=== PATIENT | male | born 1995 | race Caucasian/White ===

== ENCOUNTER 2019-03-22 01:15 | Emergency (ER) | payer BC, SELFPAY ==
[2019-03-22 01:25] VITALS: BP 145/81; PULSE 77; RESP 18; TEMP 36.6; O2SAT 98
--- NOTE | 2019-03-22 01:29 | ED.WOUNDLAC ---
HPI - Wound/Laceration General Chief Complaint: Wound/Laceration Stated Complaint: LACERATION ON LIP Time Seen by Provider: 03/22/19 01:29 Source: patient and RN notes reviewed Mode of arrival: ambulatory Limitations: no limitations History of Present Illness HPI narrative: Patient was using a [employer] when it kicked back and caught him in the lower lip chip in his upper left incisor. Onset (ago): minute(s) Location: face Place: home Context: accidental and sharp object use Associated symptoms: none Related Data Allergies Allergy/AdvReac Type Severity Reaction Status Date / Time No Known Allergies Allergy Verified 03/22/19 01:32 Review of Systems Review of Systems: All systems reviewed & are unremarkable except as noted in HPI and below PMFSH Surgical History Surgical History (Updated 03/22/19 @ 02:24 by Florian Niño MD) No history of previous surgery (Acute) Social History Social History (Updated 03/22/19 @ 02:23 by Florian Niño MD) Smoking status: Current some day smoker Tobacco type: cigarettes Smokeless tobacco user: chewing tobacco Alcohol intake: current Alcohol use details: Occasional Substance use: never Exam Const: General: healthy appearing and no acute distress Nutritional Appearance: well nourished Orientation/consciousness: oriented x3 Limitations: no limitations Eyes: Conjunctivae: conjunctivae normal Pupils: PERRL EOM: EOM intact bilaterally Neck: Neck: normal visual inspection Resp: Effort & Inspection: normal respiratory effort Auscultation: clear to auscultation bilaterally Cardio: Rate: regular rate Rhythm: regular rhythm and regular rhythm Heart sounds: no murmurs GI: Palpation (GI): Yes soft and No tender Auscultation: normal bowel sounds Skin: General skin exam: normal color, elasticity normal and turgor normal Trauma: laceration lower lip linear, puncture, foreign body present (Inner lower lip removed) and involves subcutaneous tissue Neuro: General: oriented x3, moves all extremities and no focal motor deficits Speech: normal speech Gait exam (Neuro): normal gait Extrem: General: normal to inspection and no clubbing, cyanosis or edema Psych: Appearance: grossly normal and well kempt Mental Status: mental status grossly normal Affect: normal affect Attitude: cooperative Thought content: Yes normal Course Vital Signs Vital signs: Vital Signs Temperature 36.6 C 03/22/19 01:25 Pulse Rate 77 03/22/19 01:25 Respiratory Rate 18 03/22/19 01:25 Blood Pressure 145/81 H 03/22/19 01:25 Pulse Oximetry 98 03/22/19 01:25 Temperature 36.6 C 03/22/19 01:25 Pulse Rate 78 03/22/19 02:14 Respiratory Rate 18 03/22/19 02:14 Blood Pressure 135/80 03/22/19 02:14 Pulse Oximetry 99 03/22/19 02:14 Procedures Laceration Laceration 1: Date: 03/22/19 Time: 01:45 Site: lip Side (If applicable): left Size (cm): 1 Description: linear, contaminated and involves [place] border Depth: [id number] Local Anesthetic: lidocaine 1% Pre-repair: wound explored and irrigated ====== Skin Level ====== Skin layer closed with: nylon Size (cm): 6-0 Number of sutures: 3 Technique: simple, interrupted and other ( Inner lower lip closed with 1 of the subcutaneous sutures. Sterile total of 2) ====== Subcutaneous Layer ====== Subcutaneous layer closed with: vicryl Size: other (7-0) Number of sutures: 2 Technique: simple, interrupted ====== Muscle Layer ====== ====== Tendon Layer ====== MDM - Wound/Laceration Lab Data Attestation: I reviewed the patient's lab results. Discharge Plan Discharge Clinical Impression: Laceration Patient Disposition: Home, Self-Care Condition: Stable Instructions: Care For Your Stitches (ED), Laceration (ED), Puncture Wound (ED) Additional Instructions:
[2019-03-22] MEDS: LIDOCAINE HCL 1% LOCAL INJ 20 ML VIAL (01:43)
[2019-03-22 02:14] VITALS: BP 135/80; PULSE 78; RESP 18; O2SAT 99
== END 2019-03-22 02:18 | disposition home or self-care (01) ==
LOC: CHSED 01:23
PROVIDERS: Emergency Provider Emergency Medicine; PCP Physician Assistant
DX: S01.511A Laceration without foreign body of lip, initial encounter (principal); W27.8XXA Contact with other nonpowered hand tool, initial encounter
CPT/HCPCS: 12011; 99282; 99283